=== PATIENT | male | born 1975 | race Two or more races ===

== ENCOUNTER 2023-11-22 06:28 | Day surgery (SDC) | payer OTHER ==
[2023-11-22] MEDS ORDERED: MIDAZOLAM HCL 2 MG/2 ML VIAL IV ONE (09:00)
[2023-11-22] MEDS ORDERED: DIPHENHYDRAMINE HCL 50 MG/ML VIAL 1ML IV ONE (09:00)
[2023-11-22] MEDS ORDERED: fentaNYL CITRATE 50 MCG/ML AMPUL IV PUSH ONE (09:00)
== END 2023-11-22 10:35 | disposition home or self-care (01) ==
LOC: AMB-ENDOS 06:28
PROVIDERS: ATTEND Colon & Rectal Surgery
DX: C20 Malignant neoplasm of rectum (principal); R19.5 Other fecal abnormalities; K64.2 Third degree hemorrhoids; K60.0 Acute anal fissure; Z91.011 Allergy to milk products; Z91.018 Allergy to other foods

== ENCOUNTER 2024-01-31 05:13 | Day surgery (SDC) | payer OTHER ==
[2024-01-31] MEDS ORDERED: BUPIVACAINE HCL/Mpf 0.5% 10ML VIAL ONE (07:20)
[2024-01-31] MEDS ORDERED: CEFAZOLIN SODIUM 1,000 MG VIAL ONE (07:20)
[2024-01-31] MEDS ORDERED: LIDOCAINE HCL 1%/EPINEPHRINE 20ML VIAL IJ ONE (07:20)
[2024-01-31] MEDS ORDERED: HEPARIN SODIUM,PORCINE 500 UNITS/5 ML VIAL IV ONE (07:25)
== END 2024-01-31 11:35 | disposition home or self-care (01) ==
LOC: CIR.AMB 05:13
PROVIDERS: ATTEND Colon & Rectal Surgery
DX: C20 Malignant neoplasm of rectum (principal); Z91.011 Allergy to milk products
CPT/HCPCS: 36561; C1751